=== PATIENT | female | born 1985 | race Caucasian/White ===

== ENCOUNTER 2018-05-16 19:26 | Emergency (ER) | payer OTHER ==
--- NOTE | 2018-05-16 20:27 | ERPHSYRPT ---
- History of Present Illness Time Seen by Provider: 05/16/18 20:15 Source: patient Exam Limitations: no limitations Patient Subjective Stated Complaint: Watery diarrhea since night, vomiting on night only. diarrea about 2 times per hour. States it is starting to slow down. Pt had been taking Amoxicillin, has been off it for a week. Triage Nursing Assessment: See above Physician History: 32 y/o white female who was dx with strep pharyngitis 2 weeks ago and completed amoxicillin tx one week ago presents one day of frequent vomiting now with watery diarrhea for 3 days. no travel outside [place], no drinking of well water, no camping or drinking from streams. Timing/Duration: day(s) (3) Severity: moderate Associated Symptoms: vomiting, loss of appetite, weakness Hx Tetanus, Diphtheria Vaccination/Date Given: (Unknown) Hx Influenza Vaccination/Date Given: No Hx Pneumococcal Vaccination/Date Given: No Immunizations Up to Date: Yes - Review of Systems Constitutional: Weakness Eyes: No Symptoms Ears, Nose, & Throat: No Symptoms Respiratory: No Symptoms, No Cough, No Dyspnea, No Stridor, No Wheezing Cardiac: No Symptoms Abdominal/Gastrointestinal: Nausea, Vomiting, Diarrhea Genitourinary Symptoms: No Symptoms, No Dysuria, No Frequency, No Hematuria Musculoskeletal: No Symptoms Skin: No Symptoms Neurological: No Symptoms Psychological: No Symptoms Endocrine: No Symptoms Hematologic/Lymphatic: No Symptoms Immunological/Allergic: No Symptoms All Other Systems: Reviewed and Negative - Past Medical History Neurological History: No Pertinent History ENT History: No Pertinent History Cardiac History: No Pertinent History Respiratory History: Pneumonia Endocrine Medical History: No Pertinent History Musculoskeletal History: No Pertinent History GI Medical History: No Pertinent History History: No Pertinent History Psycho-Social History: No Pertinent History Female Reproductive Disorders: No Pertinent History Other Medical History: Strep in 2018 - Past Surgical History Past Surgical History: Yes Neuro Surgical History: No Pertinent History Cardiac: No Pertinent History Respiratory: No Pertinent History Gastrointestinal: Cholecystectomy Genitourinary: No Pertinent History Musculoskeletal: No Pertinent History Female Surgical History: No Pertinent History - Social History Smoking Status: Current every day smoker How long have you smoked: 14 years Drug Use: none Patient Lives Alone: No - Female History Hx Last Menstrual Period: 2 weeks ago Hx Now: No - Nursing Vital Signs Nursing Vital Signs: Initial Vital Signs Temperature 97.7 F 05/16/18 19:54 Pulse Rate 76 05/16/18 19:54 Blood Pressure 137/85 05/16/18 19:54 O2 Sat by Pulse Oximetry 99 05/16/18 19:54 Pain Scale Pain Intensity 0 - Physical Exam General Appearance: mild distress, alert, anxiety Eye Exam: PERRL/EOMI Ears, Nose, Throat Exam: normal ENT inspection, moist mucous membranes Neck Exam: normal inspection, non-tender, supple, full range of motion Respiratory Exam: normal breath sounds, lungs clear, airway intact, No chest tenderness, No respiratory distress, No accessory muscle use, No rhonchi, No wheezing, No stridor Cardiovascular Exam: regular rate/rhythm, normal heart sounds, normal peripheral pulses Gastrointestinal/Abdomen Exam: soft, normal bowel sounds, No tenderness, No guarding, No rebound Pelvic Exam: not done Rectal Exam: not done Back Exam: normal inspection, normal range of motion, No CVA tenderness, No vertebral tenderness Extremity Exam: normal inspection, normal range of motion, pelvis stable Neurologic Exam: alert, oriented x 3, cooperative, clinical study manager II-XII nml as tested Skin Exam: normal color, warm, dry Lymphatic Exam: No adenopathy SpO2 Interpretation: normal SpO2: 99 Oxygen Delivery: Room Air - Course Nursing assessment & vital signs reviewed: Yes Ordered Tests: Active Orders 24 hr Category Date Time Status IV Insertion STAT Care 05/16/18 20:29 Active AMYLASE Stat Lab 05/16/18 20:30 Completed CBC W DIFF Stat Lab 05/16/18 20:30 Completed CMP Stat Lab 05/16/18 20:30 Completed HCG,QUALITATIVE URINE Stat Lab 05/16/18 20:30 Completed LIPASE Stat Lab 05/16/18 20:30 Completed Lactic Acid Stat Lab 05/16/18 20:40 Completed UA W/RFX UR CULTURE Stat Lab 05/16/18 20:30 Completed Medication Summary Discontinued Medications Generic Name Dose Route Start Last Admin Trade Name Freq PRN Reason Stop Dose Admin Sodium Chloride 1,000 mls @ 999 mls/hr 05/16/18 20:29 05/16/18 21:44 Sodium Chloride 0.9% 1000 Ml IV 05/16/18 21:29 Infused .Q1H1M STA Infusion Sodium Chloride Confirm 05/16/18 20:40 Sodium Chloride 0.9% 1000 Ml Administered 05/16/18 20:41 Dose 1,000 mls @ ud .ROUTE .[facility] Ondansetron HCl 4 mg 05/16/18 20:29 05/16/18 20:44 Zofran 4 Mg/2 Ml Vial IV 05/16/18 20:30 4 mg STAT ONE Administration Ondansetron HCl Confirm 05/16/18 20:40 Zofran 4 Mg/2 Ml Vial Administered 05/16/18 20:41 Dose 4 mg .ROUTE .[facility] ONE Lab/Rad Data: Laboratory Result Diagrams 05/16/18 20:30 05/16/18 20:30 Laboratory Results 05/16/18 05/16/18 05/16/18 Range/Units 21:00 20:40 20:30 WBC (4.0-10.5) K/mm3 RBC (4.1-5.4) M/mm3 Hgb (12.0-16.0) gm/dl Hct (35-47) % MCV (78-100) fl MCH (26-32) pg MCHC (32-36) g/dl RDW (11.5-14.0) % Plt Count (150-450) K/mm3 MPV (6-9.5) fl Gran % (36.0-66.0) % Eos # (Auto) (0-0.5) Absolute Lymphs (auto) (1.0-4.6) Absolute Monos (auto) (0.0-1.3) Lymphocytes % (24.0-44.0) % Monocytes % (0.0-12.0) % Eosinophils % (0.00-5.0) % Basophils % (0.0-0.4) % Absolute Granulocytes (1.4-6.9) Basophils # (0-0.4) Sodium (137-145) mmol/L Potassium (3.5-5.1) mmol/L Chloride (98-107) mmol/L Carbon Dioxide (22-30) mmol/L Anion Gap (5-15) MEQ/L BUN (7-17) mg/dL Creatinine (0.52-1.04) mg/dL Estimated GFR ML/MIN Glucose (74-106) mg/dL Lactic Acid 1.2 (0.4-2.0) Calcium (8.4-10.2) mg/dL Total Bilirubin (0.2-1.3) mg/dL AST (14-36) U/L ALT (0-35) U/L Alkaline Phosphatase (38-126) U/L Serum Total Protein (6.3-8.2) g/dL Albumin (3.5-5.0) g/dL Amylase (30-110) U/L Lipase (23-300) U/L Urine Color (YELLOW) Urine Appearance (CLEAR) Urine pH (5-6) Ur Specific [place] (1.005-1.025) Urine Protein (Negative) Urine Ketones (NEGATIVE) Urine Blood (0-5) Odin/ul Urine Nitrite (NEGATIVE) Urine Bilirubin (NEGATIVE) Urine Urobilinogen (0-1) mg/dL Ur Leukocyte Esterase (NEGATIVE) Urine WBC (Auto) (0-5) /HPF Urine RBC (Auto) (0-2) /HPF U Epithel Cells (Auto) (FEW) /HPF Urine Bacteria (Auto) (NEGATIVE) /HPF Urine Mucus (Auto) (NEGATIVE) /HPF Urine Culture Reflexed (NO) Urine Glucose (NEGATIVE) mg/dL Urine HCG, Qual NEGATIVE (Negative) Influenza Type A Ag NEGATIVE (NEGATIVE) Influenza Type B Ag NEGATIVE (NEGATIVE) RSV (PCR) NEGATIVE (Negative) 05/16/18 05/16/18 05/16/18 Range/Units 20:30 20:30 20:30 WBC 6.9 (4.0-10.5) K/mm3 RBC 4.71 (4.1-5.4) M/mm3 Hgb 14.5 (12.0-16.0) gm/dl Hct 42.7 (35-47) % MCV 90.7 (78-100) fl MCH 30.8 (26-32) pg MCHC 34.0 (32-36) g/dl RDW 12.9 (11.5-14.0) % Plt Count 202 (150-450) K/mm3 MPV 10.3 H (6-9.5) fl Gran % 53.6 (36.0-66.0) % Eos # (Auto) 0.19 (0-0.5) Absolute Lymphs (auto) 2.25 (1.0-4.6) Absolute Monos (auto) 0.72 (0.0-1.3) Lymphocytes % 32.8 (24.0-44.0) % Monocytes % 10.5 (0.0-12.0) % Eosinophils % 2.8 (0.00-5.0) % Basophils % 0.3 (0.0-0.4) % Absolute Granulocytes 3.68 (1.4-6.9) Basophils # 0.02 (0-0.4) Sodium 141 (137-145) mmol/L Potassium 3.6 (3.5-5.1) mmol/L Chloride 104 (98-107) mmol/L Carbon Dioxide 27 (22-30) mmol/L Anion Gap 13.0 (5-15) MEQ/L BUN 11 (7-17) mg/dL Creatinine 0.60 (0.52-1.04) mg/dL Estimated GFR > 60.0 ML/MIN Glucose 85 (74-106) mg/dL Lactic Acid (0.4-2.0) Calcium 8.6 (8.4-10.2) mg/dL Total Bilirubin 0.30 (0.2-1.3) mg/dL AST 59 H (14-36) U/L ALT 78 H (0-35) U/L Alkaline Phosphatase 83 (38-126) U/L Serum Total Protein 7.2 (6.3-8.2) g/dL Albumin 4.1 (3.5-5.0) g/dL Amylase 46 (30-110) U/L Lipase 66 (23-300) U/L Urine Color YELLOW (YELLOW) Urine Appearance SLIGHTLY CLOUDY (CLEAR) Urine pH 5.0 (5-6) Ur Specific [place] 1.027 (1.005-1.025) Urine Protein NEGATIVE (Negative) Urine Ketones NEGATIVE (NEGATIVE) Urine Blood SMALL (0-5) Odin/ul Urine Nitrite NEGATIVE (NEGATIVE) Urine Bilirubin NEGATIVE (NEGATIVE) Urine Urobilinogen 4 (0-1) mg/dL Ur Leukocyte Esterase NEGATIVE (NEGATIVE) Urine WBC (Auto) 0-2 (0-5) /HPF Urine RBC (Auto) 3-5 (0-2) /HPF U Epithel Cells (Auto) RARE (FEW) /HPF Urine Bacteria (Auto) NONE (NEGATIVE) /HPF Urine Mucus (Auto) SLIGHT (NEGATIVE) /HPF Urine Culture Reflexed NO (NO) Urine Glucose NEGATIVE (NEGATIVE) mg/dL Urine HCG, Qual (Negative) Influenza Type A Ag (NEGATIVE) Influenza Type B Ag (NEGATIVE) RSV (PCR) (Negative) - Progress Progress: improved, re-examined Progress Note: 05/16/18 21:47 pt states she is feeling better. no diarrhea now. nausea resolved. does not want to stay for another liter of saline Counseled pt/family regarding: lab results, diagnosis, need for follow-up - Departure Time of Disposition: 21:49 Departure Disposition: Home Clinical Impression: Viral illness, Diarrhea Condition: Stable Critical Care Time: No Additional Instructions: drink plenty of fluids. follow up with primary doctor for further management Prescriptions: Ondansetron HCl [Zofran] 4 mg PO TID PRN #10 tablet PRN Reason: Nausea/Vomiting
[2018-05-16] MEDS ORDERED: Sodium Chloride 0.9% 1000 ML 1,000 ML IV STA (20:29)
[2018-05-16] MEDS ORDERED: Zofran 4 MG/2 ML VIAL IV ONE (20:29)
[2018-05-16 20:39] LABS: BASOPHIL % 0.3 % (0.0-0.4); Basophil (Absolute #) 0.02 (0-0.4); Eosinophil % 2.8 % (0.00-5.0); Eosinophil (Absolute #) 0.19 (0-0.5); Granulocytes % 53.6 % (36.0-66.0); Hematocrit 42.7 % (35-47); Hemoglobin 14.5 gm/dl (12.0-16.0); Lymphocyte (Absolute #) 2.25 (1.0-4.6); Lymphocytes % 32.8 % (24.0-44.0); Mean Cell Volume 90.7 fl (78-100); Mean Corpuscular Hemoglobin 30.8 pg (26-32); Mean Platelet Volume 10.3 fl (6-9.5); Monocyte (Absolute #) 0.72 (0.0-1.3); Monocytes % 10.5 % (0.0-12.0); Platelet Count 202 K/mm3 (150-450); Red Blood Count 4.71 M/mm3 (4.1-5.4); Red Cell Distribution Width 12.9 % (11.5-14.0); White Blood Count 6.9 K/mm3 (4.0-10.5)
[2018-05-16] MEDS ORDERED: Zofran 4 MG/2 ML VIAL ONE (20:40)
[2018-05-16] MEDS ORDERED: Sodium Chloride 0.9% 1000 ML 1,000 ML ONE (20:40)
[2018-05-16 20:45] LABS: Appearance SLIGHTLY CLOUDY (CLEAR); Bilirubin NEGATIVE (NEGATIVE); Blood SMALL Ery/ul (0-5); Epithelial Cells RARE /HPF (FEW); Glucose NEGATIVE (NEGATIVE); Ketones NEGATIVE (NEGATIVE); Leukocyte Esterase NEGATIVE (NEGATIVE); Mucus SLIGHT /HPF (NEGATIVE); Nitrite NEGATIVE (NEGATIVE); Protein,Urine Dip NEGATIVE (Negative); Specific Gravity 1.027 (1.005-1.025); Urobilinogen 4 mg/dL (0-1); WBC 0-2 /HPF (0-5)
[2018-05-16 20:58] LABS: ALBUMIN 4.1 g/dL (3.5-5.0); ALKALINE PHOSPHATASE 83 U/L (38-126); AMYLASE 46 U/L (30-110); BLOOD UREA NITROGEN 11 mg/dL (7-17); CHLORIDE 104 mmol/L (98-107); Calcium 8.6 mg/dL (8.4-10.2); Carbon Dioxide 27 mmol/L (22-30); Glucose 85 mg/dL (74-106); LIPASE 66 U/L (23-300); Potassium 3.6 mmol/L (3.5-5.1); SGOT/AST 59 U/L (14-36); SGPT/ALT 78 U/L (0-35); SODIUM 141 mmol/L (137-145); Total Protein 7.2 g/dL (6.3-8.2)
[2018-05-16 21:46] LABS: INFLUENZA A NEGATIVE (NEGATIVE); INFLUENZA B NEGATIVE (NEGATIVE); RESPIRATORY SYNCTIAL VIRUS NEGATIVE (Negative)
[2018-05-16 22:05] VITALS: BP 106/62; PULSE 76; O2SAT 98
== END 2018-05-16 22:10 | disposition home or self-care (01) ==
LOC: ED 19:26
DX: B34.9 Viral infection, unspecified (principal); R11.2 Nausea with vomiting, unspecified; R19.7 Diarrhea, unspecified; R53.1 Weakness
CPT/HCPCS: 36000; 36415; 80053; 81001; 82150; 83605; 83690; 84703; 85025; 87631; 96360; 96374; 99284; J2405

== ENCOUNTER 2019-01-25 13:55 | Emergency (ER) | payer OTHER ==
[2019-01-25 14:09] VITALS: O2SAT 98
--- NOTE | 2019-01-25 14:16 | ERPHSYRPT ---
- History of Present Illness Time Seen by Provider: 01/25/19 14:00 Source: patient Exam Limitations: no limitations Physician History: Right foot and ankle pain after twisting it last night while walking. Patient is at 21 weeks . Method of Injury: twisted Occurred: yesterday Quality: constant, aching Severity of Pain-Max: moderate Severity of Pain-Current: moderate Lower Extremities Pain: foot: right (lateral aspect), ankle: right (lateral aspect) Modifying Factors: Improves With: movement (worsens the pain), rest (helps the pain). Worsens With: pain medication Associated Symptoms: none, No unable to bear weight, No dizzy, No fainted, No seizure, No snapping sensation, No popping sensation Allergies/Adverse Reactions: No Known Drug Allergies Allergy (Verified 01/25/19 14:09) Home Medications: Vits W-Ca,Fe,FA(<1Mg) [] 1 each PO DAILY 01/25/19 [History] Hx Tetanus, Diphtheria Vaccination/Date Given: (Unknown) Hx Influenza Vaccination/Date Given: No Hx Pneumococcal Vaccination/Date Given: No - Review of Systems Constitutional: No Fever, No Chills Eyes: No Eye Pain, No Vision Changes Ears, Nose, & Throat: No Symptoms, No Epistaxis Respiratory: No Cough, No Dyspnea Cardiac: No Chest Pain, No Edema, No Syncope Abdominal/Gastrointestinal: No Abdominal Pain, No Nausea, No Vomiting, No Diarrhea, No Hematemesis, No Hematochezia, No Melena Genitourinary Symptoms: No Dysuria, No Frequency, No Hematuria, No Flank Pain, No Vaginal Bleeding, No Vaginal Discharge Musculoskeletal: No Back Pain, No Neck Pain Skin: No Rash Neurological: No Dizziness, No Focal Weakness, No Parasthesia, No Sensory Changes, No Tremors Psychological: No Symptoms Endocrine: No Symptoms, No Polydipsia, No Excessive Sweating Hematologic/Lymphatic: No Easy Bleeding, No Easy Bruising All Other Systems: Reviewed and Negative - Past Medical History Neurological History: No Pertinent History ENT History: No Pertinent History Cardiac History: No Pertinent History Respiratory History: Pneumonia Endocrine Medical History: No Pertinent History Musculoskeletal History: No Pertinent History GI Medical History: No Pertinent History History: No Pertinent History Psycho-Social History: No Pertinent History Female Reproductive Disorders: No Pertinent History Other Medical History: Strep in 2018 - Past Surgical History Past Surgical History: Yes Neuro Surgical History: No Pertinent History Cardiac: No Pertinent History Respiratory: No Pertinent History Gastrointestinal: Cholecystectomy Genitourinary: No Pertinent History Musculoskeletal: No Pertinent History Female Surgical History: No Pertinent History - Social History Smoking Status: Current every day smoker How long have you smoked: 14 years Drug Use: none Patient Lives Alone: No - Female History Hx Now: Yes - Nursing Vital Signs Nursing Vital Signs: Initial Vital Signs Temperature 97.8 F 01/25/19 13:59 Pulse Rate 94 H 01/25/19 13:59 Respiratory Rate 18 01/25/19 13:59 Blood Pressure 120/74 01/25/19 13:59 O2 Sat by Pulse Oximetry 98 01/25/19 13:59 Pain Scale Pain Intensity 7 - Physical Exam General Appearance: no apparent distress, alert Eyes, Ears, Nose, Throat Exam: moist mucous membranes Neck Exam: non-tender, supple Cardiovascular/Respiratory Exam: chest non-tender, normal breath sounds, regular rate/rhythm, no respiratory distress Gastrointestinal/Abdominal Exam: non-tender, soft, No guarding, No tenderness Back Exam: normal inspection, No CVA tenderness, No vertebral tenderness Hips Exam: bilateral: non-tender, normal inspection, normal range of motion, no evidence of injury Legs Exam: bilateral leg: non-tender, normal inspection, normal range of motion , no evidence of injury Knees Exam: bilateral knee: non-tender, normal inspection, normal range of motion, no evidence of injury Ankle Exam: right ankle: bone tenderness, pain, soft tissue tenderness, swelling , left ankle: non-tender, bilateral ankle: normal inspection, normal range of motion Foot Exam: right foot: pain (ffit), soft tissue tenderness, left foot: non- tender, no evidence of injury, bilateral foot: normal inspection, normal range of motion DTR - Lower Extremities Exam: ankle (R): 2+, ankle (L): 2+ Neuro/Tendon Exam: normal sensation, normal motor functions, normal tendon functions, responds to pain, no evidence tendon injury, No motor deficit, No sensory deficit Mental Status Exam: alert, oriented x 3, cooperative Skin Exam: normal color, warm, dry SpO2 Interpretation: normal O2 Delivery: Room Air - Radiology Exams Right Ankle X-ray Interpretation: Interpreted by me, Reviewed by me, Negative, No Fracture, Nml Alignment, Other (confirmed by radiologist) Foot X-ray Interpretation: Interpreted by me, Reviewed by me, Negative, No Fracture, Nml Alignment, Nml Soft Tissues, Other (confirmed by radiologist) Ordered Tests: Active Orders 24 hr Category Date Time Status Heart Tones-ED STAT Care 01/25/19 14:05 Active ANKLE (3 VIEWS) Stat Exams 01/25/19 14:03 Taken FOOT (MINIMUM 3 VIEWS) Stat Exams 01/25/19 14:03 Taken CULTURE,URINE Stat Lab 01/25/19 14:12 Received UA W/RFX UR CULTURE Stat Lab 01/25/19 14:12 Completed Lab/Rad Data: Laboratory Results 01/25/19 Range/Units 14:12 Urine Color YELLOW (YELLOW) Urine Appearance SLIGHTLY CLOUDY (CLEAR) Urine pH 6.0 (5-6) Ur Specific Drew 1.026 (1.005-1.025) Urine Protein NEGATIVE (Negative) Urine Ketones NEGATIVE (NEGATIVE) Urine Blood NEGATIVE (0-5) Odin/ul Urine Nitrite NEGATIVE (NEGATIVE) Urine Bilirubin NEGATIVE (NEGATIVE) Urine Urobilinogen 4 (0-1) mg/dL Ur Leukocyte Esterase NEGATIVE (NEGATIVE) Urine WBC (Auto) 3-5 (0-5) /HPF Urine RBC (Auto) 3-5 (0-2) /HPF U Epithel Cells (Auto) FEW (FEW) /HPF Urine Bacteria (Auto) MODERATE (NEGATIVE) /HPF Urine Mucus (Auto) SLIGHT (NEGATIVE) /HPF Urine Culture Reflexed YES (NO) Urine Glucose NEGATIVE (NEGATIVE) mg/dL - Progress Progress: improved Progress Note: 01/25/19 14:36 Pop wrap to the right ankle and Air Cast Splint applied to the right ankle. Patient feels more comfortably with these and is neurovascularly intact after placement. 01/25/19 14:36 Heart Tones: 150s Counseled pt/family regarding: lab results, diagnosis, need for follow-up, rad results - Departure Departure Disposition: Home Clinical Impression: Right foot pain Right ankle sprain Qualifiers: Encounter type: initial encounter Involved ligament of ankle: unspecified ligament Qualified Code(s): S93.401A - Sprain of unspecified ligament of right ankle, initial encounter Condition: Good Critical Care Time: No Referrals: RIMA RIDLEY [Primary Care Provider] - Follow Up with PCP/3 days Instructions: Foot Sprain (DC), Ankle Sprain (DC) Additional Instructions: Your x-rays of your foot and ankle on the right side were read as negative per the Emergency Department physician as well as the radiologist's interpretation. Followup with physician in 3 days if the pain is still significant. Continue to rest, ice for 15-20 minutes on, 40-45 minutes off, 4 times a day, compression with Pop wrap, and elevation to help with pain support. You may continue to use the air cast splint for support and pain control also. You may take Tylenol very safely for pain control at this stage of . Return immediately back to the emergency department if any worsening swelling, worsening pain, inability to ambulate, or any other concerning signs or symptoms that were not present, please return to the emergency department for immediate reevaluation.
[2019-01-25 14:21] LABS: Appearance SLIGHTLY CLOUDY (CLEAR); Bacteria MODERATE /HPF (NEGATIVE); Bilirubin NEGATIVE (NEGATIVE); Blood NEGATIVE Ery/ul (0-5); Epithelial Cells FEW /HPF (FEW); Glucose NEGATIVE (NEGATIVE); Ketones NEGATIVE (NEGATIVE); Leukocyte Esterase NEGATIVE (NEGATIVE); Mucus SLIGHT /HPF (NEGATIVE); Nitrite NEGATIVE (NEGATIVE); Protein,Urine Dip NEGATIVE (Negative); Specific Gravity 1.026 (1.005-1.025); Urobilinogen 4 mg/dL (0-1)
--- NOTE | 2019-01-25 14:36 | XRAY ---
Indication: Pain following fall. Comparison: None 3 views of the right ankle demonstrates small heel spurs. No other bony, articular, or soft tissue abnormalities.
--- NOTE | 2019-01-25 14:38 | XRAY ---
Indication: Pain following fall. Comparison: None 3 nonweightbearing views of the right foot demonstrates small heel spurs and tiny talonavicular accessory ossicle. No other bony, articular, or soft tissue abnormalities.
[2019-01-25 14:56] VITALS: BP 118/70; PULSE 88
== END 2019-01-25 14:56 | disposition home or self-care (01) ==
LOC: ED 13:55
DX: S93.401A Sprain of unspecified ligament of right ankle, initial encounter (principal); M79.671 Pain in right foot; X50.1XXA Overexertion from prolonged static or awkward postures, initial encounter; Y93.9 Activity, unspecified; Y92.89 Other specified places as the place of occurrence of the external cause; Y99.8 Other external cause status
CPT/HCPCS: 73610; 73630; 81001; 87086; 99284

== ENCOUNTER 2019-05-06 12:08 | Observation (INO) | payer OTHER ==
[2019-05-06 12:44] VITALS: BP 128/68; PULSE 79
== END 2019-05-06 13:32 | disposition home or self-care (01) ==
LOC: OB 12:08
PROVIDERS: ADMIT Obstetrics & Gynecology; ATTEND Obstetrics & Gynecology
DX: Z34.83 Encounter for supervision of other normal pregnancy, third trimester (principal)
CPT/HCPCS: 59025; G0378

== ENCOUNTER 2019-05-12 10:41 | Observation (INO) | payer OTHER ==
[2019-05-12 11:09] VITALS: BP 112/58; PULSE 81
--- NOTE | 2019-05-12 12:30 | XRAY ---
Indication: Size greater than dates. 2-dimensional OB ultrasound performed. Comparison: March 31 2019. Again there is a single viable intrauterine in cephalic presentation. heart rate 144 bpm. anatomy previously documented. Again anterior placenta without abruption/previa. BPD measures 9.01 cm corresponding to 36 weeks 3 days. HC measures 33.34 cm corresponding to 38 weeks 1 day. AC measures 36.27 cm corresponding to 40 weeks 1 day. FL measures 7.29 cm corresponding to 37 weeks 2 days. Estimated weight 7 lbs. 15 oz., +/- 1 pound 3 ounces. Approximately 95 percentile. MERT is 10.9 cm. Impression: Again single viable intrauterine with mean gestational age 38 weeks 0 days. There has been progression of . Fetus measures 10 days larger with respect to first exam December 06, 2018.
== END 2019-05-12 13:38 | disposition home or self-care (01) ==
LOC: OB 10:41
PROVIDERS: ADMIT Family Medicine; ATTEND Family Medicine
DX: Z34.83 Encounter for supervision of other normal pregnancy, third trimester (principal)
CPT/HCPCS: 59025; 76805; 81003; G0378

== ENCOUNTER 2019-05-19 12:58 | Observation (INO) | payer OTHER ==
[2019-05-19 13:27] VITALS: BP 138/65; PULSE 81
== END 2019-05-19 14:08 | disposition home or self-care (01) ==
LOC: OB 12:58
PROVIDERS: ADMIT Family Medicine; ATTEND Family Medicine
DX: Z34.83 Encounter for supervision of other normal pregnancy, third trimester (principal)
CPT/HCPCS: 59025; G0378

== ENCOUNTER 2019-05-26 12:46 | Observation (INO) | payer OTHER ==
--- NOTE | 2019-05-26 14:06 | XRAY ---
Indication: well-being. Ultrasound biophysical profile exam was performed. There is a single intrauterine with heart rate 141 bpm. Four-quadrant MERT is 7.2 cm. 2 points given for movement, breathing, tone, and qualitative amniotic fluid volume. Impression: Total biophysical profile score is 8 out of 8.
[2019-05-26 14:40] VITALS: BP 145/69; PULSE 82
== END 2019-05-26 14:35 | disposition home or self-care (01) ==
LOC: OB 12:46
PROVIDERS: ADMIT Family Medicine; ATTEND Family Medicine
DX: Z34.83 Encounter for supervision of other normal pregnancy, third trimester (principal)
CPT/HCPCS: 59025; 76819; G0378

== ENCOUNTER 2019-05-27 05:10 | Inpatient (IN) | payer OTHER ==
[2019-05-27 05:48] LABS: Absolute Neutrophil Ct (ANC) 11.63 (1.4-6.9); BASOPHIL % 0.1 % (0.0-0.4); Basophil (Absolute #) 0.02 (0-0.4); Hematocrit 37.5 % (35-47); Hemoglobin 12.8 gm/dl (12.0-16.0); Lymphocyte (Absolute #) 2.28 (1.0-4.6); Lymphocytes % 14.9 % (24.0-44.0); Mean Cell Volume 90.1 fl (78-100); Mean Corpuscular Hemoglobin 30.8 pg (26-32); Mean Corpuscular Hgb Concent. 34.1 g/dl (32-36); Mean Platelet Volume 11.3 fl (7.5-11.0); Monocytes % 7.2 % (0.0-12.0); Neutrophil % 75.8 % (36.0-66.0); Platelet Count 227 K/mm3 (150-450); Red Blood Count 4.16 M/mm3 (4.1-5.4); Red Cell Distribution Width 13.7 % (11.5-14.0); White Blood Count 15.3 K/mm3 (4.0-10.5)
[2019-05-27 05:52] LABS: Appearance CLOUDY (CLEAR); Bacteria FEW /HPF (NEGATIVE); Bilirubin NEGATIVE (NEGATIVE); Blood NEGATIVE Ery/ul (0-5); Epithelial Cells FEW /HPF (FEW); Glucose NEGATIVE (NEGATIVE); Ketones NEGATIVE (NEGATIVE); Leukocyte Esterase NEGATIVE (NEGATIVE); Mucus MODERATE /HPF (NEGATIVE); Nitrite NEGATIVE (NEGATIVE); Protein,Urine Dip 30 (Negative); Specific Gravity 1.026 (1.005-1.025); Urobilinogen 2 mg/dL (0-1)
[2019-05-27 05:58] LABS: INR 0.96 (0.8-3.0); PROTIME 10.8 SECONDS (9.95-12.35)
[2019-05-27] MEDS ORDERED: Pepcid 20 MG VIAL IV SCH (06:00)
[2019-05-27] MEDS ORDERED: Reglan 10 MG/2 ML IV SCH (06:00)
[2019-05-27] MEDS ORDERED: BICITRA 30 ML CUP PO SCH (06:00)
[2019-05-27] MEDS ORDERED: Lactated Ringers 1,000 ML IV ONE ×2 (06:00→08:25)
[2019-05-27] MEDS ORDERED: Lactated Ringers 1,000 ML IV SCH (06:00)
[2019-05-27] MEDS ORDERED: CEFAZOLIN 2 GM-D5W BAG** 2 GM/50 ML ML IV SCH (06:00)
[2019-05-27 06:01] LABS: PTT 30.1 SECONDS (25.3-37.0)
[2019-05-27 06:39] LABS: Amphetamine,Urine NEGATIVE (NEGATIVE); Barbiturate,Urine NEGATIVE (NEGATIVE); Benzodiazepine,Urine NEGATIVE (NEGATIVE); Cocaine,Urine NEGATIVE (NEGATIVE); Methadone,Urine NEGATIVE (NEGATIVE); Opiate,Urine NEGATIVE (NEGATIVE); PCP,Urine NEGATIVE (NEGATIVE); THC,Urine NEGATIVE (NEGATIVE)
[2019-05-27 06:40] LABS: ABO TYPING B; Antibody Screen NEGATIVE (NEGATIVE); RH TYPING POSITIVE
[2019-05-27] MEDS ORDERED: Astramorph-Pf 5 MG/10 ML ONE (08:55)
[2019-05-27] MEDS ORDERED: Pitocin 10 UNITS/ML ONE ×2 (08:56→09:53)
[2019-05-27] MEDS ORDERED: PHENYLEPHRINE HCL ONE (09:24)
[2019-05-27] MEDS ORDERED: SUBLIMAZE 100 MCG/2 ML ONE (09:50)
[2019-05-27] MEDS ORDERED: Versed 2 MG/2 ML Injection ONE (09:50)
[2019-05-27] MEDS ORDERED: Ketamine HCl 50 MG/ML ONE (09:52)
[2019-05-27] MEDS ORDERED: DEMEROL 50 MG IV PRN ×2 (10:00→12:14)
[2019-05-27] MEDS ORDERED: Phenergan 25 MG INJ IM PRN (10:00)
[2019-05-27] MEDS ORDERED: TORAdol 30 mg Injection ONE (10:06)
[2019-05-27 11:35] LABS: Appearance SLIGHTLY CLOUDY (CLEAR); Bacteria RARE /HPF (NEGATIVE); Bilirubin NEGATIVE (NEGATIVE); Blood NEGATIVE Ery/ul (0-5); Epithelial Cells RARE /HPF (FEW); Glucose NEGATIVE (NEGATIVE); Ketones NEGATIVE (NEGATIVE); Leukocyte Esterase NEGATIVE (NEGATIVE); Mucus MODERATE /HPF (NEGATIVE); Nitrite NEGATIVE (NEGATIVE); Protein,Urine Dip NEGATIVE (Negative); RBC 0-2 /HPF (0-2); Specific Gravity 1.027 (1.005-1.025); Urobilinogen 2 mg/dL (0-1)
[2019-05-27] MEDS ORDERED: Nubain 10 MG/ML IV PRN (12:14)
[2019-05-27] MEDS ORDERED: BENADRYL 50 MG/ML IV PRN (12:14)
[2019-05-27] MEDS ORDERED: Narcan 0.4 MG/ML IV PRN (12:14)
[2019-05-27] MEDS ORDERED: CLARITIN 10 MG PO PRN (12:14)
[2019-05-27] MEDS ORDERED: Zofran 4 MG/2 ML VIAL IV PRN (12:14)
[2019-05-27] MEDS ORDERED: MORPHINE SULFATE 2 MG INJ IV PRN (12:14)
[2019-05-27] MEDS ORDERED: HOLD NARCOTIC ANALGESICS AND SEDATIVES X24 HR MC PRN (12:14)
[2019-05-27] MEDS ORDERED: TORAdol 30 mg Injection IV PRN (12:29)
[2019-05-27] MEDS ORDERED: TYLENOL EXTRA STRENGTH 500 MG PO PRN (13:06)
[2019-05-27] MEDS ORDERED: Mylicon 80MG PO PRN (13:06)
[2019-05-27] MEDS ORDERED: Anucort-HC SUPPOSITORY PR PRN (13:06)
[2019-05-27] MEDS ORDERED: Ambien 10 MG PO PRN (13:06)
[2019-05-27] MEDS ORDERED: CORTISONE 1% CREAM TP PRN (13:06)
[2019-05-27] MEDS ORDERED: Dulcolax 10 MG SUPP PR PRN (13:06)
[2019-05-27] MEDS: Dextrose 5%-Lr IV Solution 1000 ML 1,000 ML IV SCH (15:53)
[2019-05-27] MEDS: MOTRIN 400 MG PO PRN (17:17)
[2019-05-27] MEDS: Colace 100 MG PO SCH (20:51)
[2019-05-27] MEDS: PERCOCET TABLET 5/325MG PO PRN (20:51)
[2019-05-27] MEDS: ENOXAPARIN SODIUM SQ SCH (20:52)
[2019-05-28] MEDS: Dextrose 5%-Lr IV Solution 1000 ML 1,000 ML IV SCH (02:29)
[2019-05-28] MEDS: MOTRIN 400 MG PO PRN ×3 (02:38→18:14)
[2019-05-28] MEDS: PERCOCET TABLET 5/325MG PO PRN (02:38)
[2019-05-28 04:53] LABS: Absolute Neutrophil Ct (ANC) 7.83 (1.4-6.9); BASOPHIL % 0.2 % (0.0-0.4); Basophil (Absolute #) 0.02 (0-0.4); Eosinophil % 2.4 % (0.00-5.0); Eosinophil (Absolute #) 0.26 (0-0.5); Hematocrit 33.8 % (35-47); Hemoglobin 11.4 gm/dl (12.0-16.0); Lymphocyte (Absolute #) 2.04 (1.0-4.6); Lymphocytes % 18.4 % (24.0-44.0); Mean Cell Volume 92.3 fl (78-100); Mean Corpuscular Hemoglobin 31.1 pg (26-32); Mean Corpuscular Hgb Concent. 33.7 g/dl (32-36); Mean Platelet Volume 11.3 fl (7.5-11.0); Monocyte (Absolute #) 0.91 (0.0-1.3); Monocytes % 8.2 % (0.0-12.0); Neutrophil % 70.8 % (36.0-66.0); Platelet Count 178 K/mm3 (150-450); Red Blood Count 3.66 M/mm3 (4.1-5.4); Red Cell Distribution Width 14.1 % (11.5-14.0); White Blood Count 11.1 K/mm3 (4.0-10.5)
[2019-05-28] MEDS: Colace 100 MG PO SCH ×2 (09:25→21:37)
[2019-05-28] MEDS: FERREX 150 PO SCH (09:25)
[2019-05-28] MEDS ORDERED: Restoril 15 MG PO PRN (13:06)
[2019-05-28] MEDS: NORCO 5/325 MG PO PRN ×2 (15:15→19:56)
[2019-05-28] MEDS: ENOXAPARIN SODIUM SQ SCH (21:38)
[2019-05-29 02:16] VITALS: O2SAT 97
[2019-05-29] MEDS: NORCO 5/325 MG PO PRN ×3 (04:15→08:47)
[2019-05-29] MEDS: MOTRIN 400 MG PO PRN ×2 (06:12)
[2019-05-29] MEDS: FERREX 150 PO SCH (08:49)
[2019-05-29] MEDS: Colace 100 MG PO SCH (08:49)
--- NOTE | 2019-05-29 08:58 | PCM.DS ---
Discharge Summary Date of Admission: 05/27/19 05:10 Admitting Physician: RIMA PA Consults: Consults on Case 05/27/19 05:00 Notify Anesthesia Provider ROUTINE Notify Physician OF ADMISSION 05/27/19 12:14 Notify Anesthesia Provider PRN Primary Care Provider: RIMA PA Allergies Allergies No Known Drug Allergies Allergy (Verified 05/19/19 13:29) Hospital Summary - Hospital Course Hospital Course: patient had repeat by Dr Carcamo on 05/27, had care with Dr Pa. has done excellent post-operatively with no complications. has mild lochia, pain is controlled and she is well bonded with her baby girl. bottle feeding - Vitals & Intake/Output Vital Signs: Vital Signs Temperature 98.0 F 05/29/19 02:00 Pulse Rate 88 05/29/19 02:00 Respiratory Rate 20 05/29/19 02:00 Blood Pressure 120/78 05/29/19 02:00 O2 Sat by Pulse Oximetry 97 05/29/19 02:00 Intake & Output: Intake & Output 05/26/19 05/27/19 05/28/19 05/29/19 11:59 11:59 11:59 11:59 Intake Total 4959 2100 Output Total 650 1750 Balance 4309 350 Weight 158.757 kg - Lab Result Diagrams: 05/28/19 04:56 Lab Results-Last 24 Hrs: Lab Results-Last 24 Hours 05/27/19 Range/Units 05:35 Hep Bs Antigen Non Reactive (Non Reactive) Micro Results-Entire Visit: Microbiology 05/27/19 09:17 Urine Culture - Preliminary Urine, Catheterized NO GROWTH TO DATE - Procedures and Test Procedures and Tests throughout Hospitalization: Therapy Orders & Screens 05/27/19 11:18 Standby Routine Comment: Diagnosis: Repeat Section Discharge Exam General Appearance: no apparent distress, obese Neurologic Exam: alert, oriented x 3, cooperative Respiratory Exam: normal breath sounds, lungs clear, No respiratory distress Cardiovascular Exam: regular rate/rhythm, normal heart sounds Gastrointestinal/Abdomen Exam: soft, other (dressing clean,dry, intact), No tenderness, No mass Extremity Exam: normal inspection, normal range of motion Skin Exam: normal color, warm, dry Final Diagnosis/Problem List - Final Discharge Diagnosis/Problem (1) delivery delivered Current Visit: Yes Status: Acute Code(s): O82 - ENCOUNTER FOR DELIVERY WITHOUT INDICATION - Discharge Disposition: Home, Self-Care Condition: Stable Prescriptions: New Hydrocodone/APAP 5-325 Tab^^^ [[place] 5-325 Tablet^^^] 1 tab PO Q6HPRN PRN # 20 tablet MDD 6 PRN Reason: Pain Continue Vits W-Ca,Fe,FA(<1Mg) [] 1 each PO DAILY Loratadine 10 mg PO DAILY Follow up with: RIMA PA [Primary Care Provider] - 1 Week
[2019-05-29 10:32] VITALS: BP 151/90; PULSE 90
--- NOTE | 2019-05-30 09:33 | OP ---
SURGERY DATE/TIME: 05/27/2019901 PREOPERATIVE DIAGNOSIS: Intrauterine at 38 weeks and 6 days gestation with previous section, morbid obesity, oligohydramnios and macrosomia. POSTOPERATIVE DIAGNOSIS: Intrauterine at 38 weeks and 6 days gestation with previous section, morbid obesity, oligohydramnios and macrosomia. PROCEDURE: Repeat section, low flap transverse uterine incision, Pfannenstiel skin incision, vacuum-assisted delivery. SURGEON: Lamberto Carcamo D.O. ENVIRONMENTAL FIELD PROFESSIONAL: Dr. Christi Pa ANESTHESIA: Spinal. ESTIMATED BLOOD LOSS: 600 cc. COMPLICATIONS: None. INDICATIONS: The risks, benefits, indications and alternatives of the procedure were reviewed with the patient prior to procedure. The patient understood the risk of infection, bleeding, bowel injury, bladder injury, ureteral injury, incisional hernia associated with the surgery and desires to have this surgery as a possible need to alleviate her current medical condition. DESCRIPTION OF PROCEDURE AND FINDINGS: At this point the patient is taken to the operating room where her spinal anesthesia was found to adequate. She was then prepped and draped in normal sterile fashion in the dorsal supine position with leftward tilt. A Pfannenstiel skin incision is made with a scalpel and then carried through to the underlying layer of the fascia with Bovie. The fascia was then incised in the midline and the incision extended laterally with Dexter scissors. The superior aspect of the fascial incision was then grasped Femi clamps elevated and the underlying rectus muscles dissected off bluntly. Attention is then turned to the inferior aspect of this incision which in similar fashion was grasped, tented up with Femi clamps and the rectus muscles dissected off bluntly. The rectus muscles were then at the midline and the peritoneum identified, tented up and entered sharply with Metzenbaum scissors. The peritoneum incision was then extended superiorly and inferiorly with good visualization of the bladder. The bladder blade was then inserted and the vesicouterine peritoneum identified, grasped with a pickup and entered sharply with Metzenbaum scissors. This incision was then extended laterally and bladder flap created medially. The bladder blade was then re-inserted and the lower uterine segment incised in transverse fashion with a scalpel. The uterine incision was then extended laterally with bandage scissors. At this point the bladder blade was then removed and secondary to the position of the baby's head, vacuum assistance was used to deliver the baby's head and was done so without complication. The nose and mouth were suctioned with the suction cup and cord clamped and cut. The was then handed off to the awaiting nurses. From this point the placenta was then removed manually. The uterus exteriorized and cleared of all clots and debris. The uterine incision was repaired with 1-0 chromic interlocked fashion. A second layer of the same suture was used to obtain excellent hemostasis. The uterus is then returned to the abdomen. The gutters were cleared of all clots and the peritoneum closed in interrupted fashion using 2-0 chromic suture. The fascia was reapproximated with 0 Vicryl in running fashion. The subcutaneous layer was closed with 3-0 plain suture. The skin was closed with absorbable cristina called INSORB. The patient tolerated the procedure well. Sponge, lap, needle and instrument counts were correct x2. The patient was then taken to the recovery room in stable condition. The patient delivered a live baby girl at 0936 hours. 's were 9 at 1 minute and 9 at 5 minutes and the delivery weight was 9 pounds 0 ounces.
== END 2019-05-29 09:45 | disposition home or self-care (01) | DRG 787 ==
LOC: OB 05:10 → UNDOADMIN 08:05 → OB 08:05
PROVIDERS: ADMIT Family Medicine; ATTEND Family Medicine
PROC: 10D00Z1 Extraction of Products of Conception, Low, Open Approach (ICD-10-PCS; principal; 2019-05-28)
DX: O34.211 Maternal care for low transverse scar from previous cesarean delivery (principal); O41.03X0 Oligohydramnios, third trimester, not applicable or unspecified; O36.63X0 Maternal care for excessive fetal growth, third trimester, not applicable or unspecified; Z3A.38 38 weeks gestation of pregnancy; Z37.0 Single live birth
CPT/HCPCS: 36415; 59025; 62322; 76819; 80307; 81001; 81003; 85025; 85610; 85730; 86850; 86900; 86901; 87086; 87340; 94799; G0378; J0690; J1650; J1885; J2250; J2274; J2370; J2590; J3010; A9270-GY

== ENCOUNTER 2020-05-22 21:40 | Emergency (ER) | payer OTHER ==
--- NOTE | 2020-05-22 22:13 | ERPHSYRPT ---
- History of Present Illness Time Seen by Provider: 05/22/20 22:15 Source: patient ([id number]) Physician History: Patient is a 34-year-old female presents to our ED with complaints of right foot and ankle pain. Patient stepped on a toy and inverted her ankle. Injury occurred approximately 4 PM today. Patient wrapped the ankle took ibuprofen and ambulated on her foot. However patient is here because the pain persist. No other injuries reported. Pain described as an ache that is well localized. No radiation. Pain worse with weightbearing pain improved with rest. Symptoms are mild to moderate in intensity. Patient denies other injuries. No knee hip or back pain. No BHT or LOC. Patient otherwise healthy. She voices no other complaints concerns at this time. Method of Injury: twisted Occurred: this afternoon Quality: constant Severity of Pain-Max: moderate Severity of Pain-Current: mild Lower Extremities Pain: foot: right, ankle: right Modifying Factors: Improves With: movement, rest Associated Symptoms: none Allergies/Adverse Reactions: No Known Drug Allergies Allergy (Verified 05/22/20 22:10) Home Medications: Loratadine 10 mg PO DAILY 05/06/19 [History] Hx Tetanus, Diphtheria Vaccination/Date Given: (Unknown) Hx Influenza Vaccination/Date Given: No Hx Pneumococcal Vaccination/Date Given: No Travel Risk - International Travel Have you traveled outside of the country in past 3 weeks: No - Coronavirus Screening Are you exhibiting any of the following symptoms?: No Close contact with a COVID-19 positive Pt in past 14-21 Days: No - Review of Systems Constitutional: No Symptoms, No Fever, No Chills Eyes: No Symptoms Ears, Nose, & Throat: No Symptoms Respiratory: No Symptoms, No Cough, No Dyspnea Cardiac: No Symptoms, No Chest Pain, No Edema, No Syncope Abdominal/Gastrointestinal: No Symptoms, No Abdominal Pain, No Nausea, No Vomiting, No Diarrhea Genitourinary Symptoms: No Symptoms, No Dysuria Musculoskeletal: No Symptoms, No Back Pain, No Neck Pain Skin: No Symptoms, No Rash Neurological: No Symptoms, No Dizziness, No Focal Weakness, No Sensory Changes Psychological: No Symptoms Endocrine: No Symptoms Hematologic/Lymphatic: No Symptoms Immunological/Allergic: No Symptoms All Other Systems: Reviewed and Negative - Past Medical History Neurological History: No Pertinent History ENT History: No Pertinent History Cardiac History: No Pertinent History Respiratory History: Pneumonia Endocrine Medical History: No Pertinent History Musculoskeletal History: No Pertinent History GI Medical History: No Pertinent History History: No Pertinent History Psycho-Social History: No Pertinent History Female Reproductive Disorders: No Pertinent History Other Medical History: Strep in 2018 - Past Surgical History Past Surgical History: Yes Neuro Surgical History: No Pertinent History Cardiac: No Pertinent History Respiratory: No Pertinent History Gastrointestinal: Cholecystectomy Genitourinary: No Pertinent History Musculoskeletal: No Pertinent History Female Surgical History: No Pertinent History - Social History Smoking Status: Current some day smoker How long have you smoked: 14 years Exposure to second hand smoke: Yes Drug Use: none Patient Lives Alone: No - Female History Hx Now: No - Nursing Vital Signs Nursing Vital Signs: Initial Vital Signs Temperature 98.5 F 05/22/20 22:07 Pulse Rate 84 05/22/20 22:07 Respiratory Rate 18 05/22/20 22:07 Blood Pressure 133/86 05/22/20 22:07 O2 Sat by Pulse Oximetry 96 05/22/20 22:07 Pain Scale Pain Intensity 8 - Physical Exam General Appearance: no apparent distress, alert Eyes, Ears, Nose, Throat Exam: moist mucous membranes Neck Exam: non-tender, supple Cardiovascular/Respiratory Exam: chest non-tender, normal breath sounds, regular rate/rhythm, no respiratory distress Gastrointestinal/Abdominal Exam: non-tender, guarding Back Exam: normal inspection, No vertebral tenderness Hips Exam: bilateral: non-tender, normal inspection, normal range of motion, no evidence of injury Legs Exam: bilateral leg: non-tender, normal inspection, normal range of motion, no evidence of injury Knees Exam: bilateral knee: non-tender, normal inspection, normal range of motion, no evidence of injury Ankle Exam: left ankle: non-tender, normal inspection, normal range of motion, no evidence of injury Foot Exam: left foot: non-tender, normal inspection, normal range of motion, no evidence of injury Neuro/Tendon Exam: normal sensation, normal motor functions Mental Status Exam: alert, oriented x 3, cooperative Skin Exam: normal color, warm, dry SpO2 Interpretation: normal O2 Delivery: Room Air - Course Nursing assessment & vital signs reviewed: Yes - Radiology Exams Ankle X-ray Interpretation: Interpreted by me (No fracture or dislocation.) Foot X-ray Interpretation: Interpreted by me (No fracture or dislocation.) Ordered Tests: Active Orders 24 hr Category Date Time Status ANKLE (3 VIEWS) Stat Exams 05/22/20 22:07 Taken FOOT (MINIMUM 3 VIEWS) Stat Exams 05/22/20 22:07 Taken - Progress Progress: improved Progress Note: 05/22/20 22:53 Patient reassessed. Patient continues to decline pain medication. X-ray negative for fracture dislocation. Will place patient in a walking boot. Patient to follow-up with her primary care doctor within 48 hours for reevaluation. Patient voices no other complaints concerns at this time. Will discharge home. Counseled pt/family regarding: diagnosis, need for follow-up, rad results - Departure Departure Disposition: Home Clinical Impression: Ankle sprain, Foot sprain Condition: Stable Critical Care Time: No Referrals: RIMA CLEMENTS [Primary Care Provider] - Additional Instructions: Discharge/Care Plan STEPHANIE BETANCOURT YURI was seen on 05/22/20 in the Emergency Room. The patient was counseled regarding Diagnosis,Lab results, Imaging studies, need for follow up and when to return to the Emergency Room. Prescriptions given: Discharge Note I have spoken with the patient and/or caregivers. I have explained the patient's condition, diagnosis and treatment plan based on the information available to me at this time. I have answered the patient's and/or caregiver's questions and addressed any concerns. The patient and/or caregivers have as good understanding of the patient's diagnosis, condition and treatment plan as can be expected at this point. The vital signs have been stable. The patient's condition is stable and appropriate for discharge from the emergency department. The patient will pursue further outpatient evaluation with the primary care physician or other designated or consulting physician as outlined in the discharge instructions. The patient and/or caregivers are agreeable to this plan of care and follow-up instructions have been explained in detail. The patient and/or caregivers have received these instruction. The patient/and or caregivers are aware that any significant change in condition or worsening of symptoms should prompt an immediate return to this or the closest emergency department or call 911.
[2020-05-22 23:38] VITALS: BP 86/56; PULSE 80; O2SAT 100
--- NOTE | 2020-05-23 08:51 | XRAY ---
Indication: Pain following fall. Comparison: None 3 view right ankle demonstrates tiny heel spurs. No other bony, articular, or soft tissue abnormalities.
--- NOTE | 2020-05-23 09:01 | XRAY ---
Indication: Pain following fall. Comparison: None 3 nonweightbearing views right foot demonstrates tiny heel spurs and tiny talonavicular/cuboid accessory ossicles. No other bony, articular, or soft tissue abnormalities.
== END 2020-05-22 23:09 | disposition home or self-care (01) ==
LOC: ED 21:40
DX: S93.401A Sprain of unspecified ligament of right ankle, initial encounter (principal); S93.601A Unspecified sprain of right foot, initial encounter; X50.9XXA Other and unspecified overexertion or strenuous movements or postures, initial encounter
CPT/HCPCS: 73610; 73630; 99284; L4386

== ENCOUNTER 2022-11-25 23:45 | Emergency (ER) | payer OTHER ==
[2022-11-26] MEDS ORDERED: TORAdol 30 mg Injection IM ONE (00:25)
[2022-11-26] MEDS ORDERED: TORAdol 30 mg Injection ONE (00:39)
[2022-11-26] MEDS ORDERED: CORTISPORIN EAR DROPS Solution 1OML OT ONE (00:42)
[2022-11-26 00:50] VITALS: BP 135/85; O2SAT 99
--- NOTE | 2022-11-26 01:22 | ERPHSYRPT ---
- History of Present Illness Time Seen by Provider: 11/26/22 01:00 Source: patient Exam Limitations: no limitations Patient Subjective Stated Complaint: pt c/o R ear ache x2 days Triage Nursing Assessment: pt ambulatory to bed by self, A&OX3, skin pwd, pt c/o R ear ache, pt holding R ear, pt was seen at [facility] this morning and was prescribed Augmentin Q 12 hrs, pt has had 2 doses, pt states "It feels like my ear is closing up." Physician History: Patient a 37-year-old female presents to our ED for evaluation of pain to her right ear. Pain started yesterday. Patient slept with a hot pack on her right ear. Patient ear pain worsen. Patient states she feels as though her right ear canal was closing up. Patient followed up at an urgent care today. Patient was prescribed Augmentin. Patient has taken 2 doses. Patient is here due to constant pain. No trauma. No fever. Symptoms are mild to moderate in intensity. Manipulation of the external ear reproduces pain. Pain improved with rest. No associated dizziness. No change in hearing acuity. Patient otherwise feels well. She voices no other complaints or concerns at this time. Portions of this note were created with voice recognition technology. There may be grammatical, spelling, punctuation or sound alike errors Timing/Duration: gradual onset Severity: moderate ENT Location: ear (R) Prearrival Treatment: over the counter meds Modifying Factors: Improves With: nothing Associated Symptoms: denies symptoms Allergies/Adverse Reactions: No Known Drug Allergies Allergy (Verified 05/22/20 22:10) Home Medications: Amox Tr/Potass Clav. 875 mg [Augmentin 875-125 Tablet] 875 mg PO BID 11/26/22 [History] Hx Tetanus, Diphtheria Vaccination/Date Given: Yes Hx Influenza Vaccination/Date Given: No Hx Pneumococcal Vaccination/Date Given: No Immunizations Up to Date: Yes Travel Risk - International Travel Have you traveled outside of the country in past 3 weeks: No - Coronavirus Screening Are you exhibiting any of the following symptoms?: No Close contact with a COVID-19 positive Pt in past 14-21 Days: No - Vaccine Status Have you recieved a Covid-19 vaccination: No - Review of Systems Constitutional: No Symptoms, No Fever, No Chills Eyes: No Symptoms Ears, Nose, & Throat: No Symptoms Respiratory: No Symptoms, No Cough, No Dyspnea Cardiac: No Symptoms, No Chest Pain, No Edema, No Syncope Abdominal/Gastrointestinal: No Symptoms, No Abdominal Pain, No Nausea, No Vomiting, No Diarrhea Genitourinary Symptoms: No Symptoms, No Dysuria Musculoskeletal: No Symptoms, No Back Pain, No Neck Pain Skin: No Symptoms, No Rash Neurological: No Symptoms, No Dizziness, No Focal Weakness, No Sensory Changes Psychological: No Symptoms Endocrine: No Symptoms Hematologic/Lymphatic: No Symptoms Immunological/Allergic: No Symptoms All Other Systems: Reviewed and Negative - Past Medical History Pertinent Past Medical History: Yes Neurological History: No Pertinent History ENT History: No Pertinent History Cardiac History: No Pertinent History Respiratory History: Pneumonia Endocrine Medical History: No Pertinent History Musculoskeletal History: No Pertinent History GI Medical History: No Pertinent History History: No Pertinent History Psycho-Social History: No Pertinent History Female Reproductive Disorders: No Pertinent History Other Medical History: Strep in 2018 - Past Surgical History Past Surgical History: Yes Neuro Surgical History: No Pertinent History Cardiac: No Pertinent History Respiratory: No Pertinent History Gastrointestinal: Cholecystectomy Genitourinary: No Pertinent History Musculoskeletal: No Pertinent History Female Surgical History: Section - Social History Smoking Status: Current every day smoker How long have you smoked: 14 years Exposure to second hand smoke: No Drug Use: none Patient Lives Alone: No - Female History Hx Last Menstrual Period: 11/25/22 Hx Now: No - Nursing Vital Signs Nursing Vital Signs: Initial Vital Signs Temperature 97.9 F 11/25/22 23:54 Pulse Rate 69 11/25/22 23:54 Respiratory Rate 18 11/25/22 23:54 Blood Pressure 125/98 11/25/22 23:54 O2 Sat by Pulse Oximetry 97 11/25/22 23:54 Pain Scale Pain Intensity 9 - Physical Exam General Appearance: no apparent distress, alert Eye Exam: bilateral eye: normal inspection, PERRL, EOMI Ear Exam: right ear: other (Right otitis externa. TM intact. No perforation observed on exam. No mastoid pain or tenderness. There is swelling and closure of the external auditory canal. This is due to otitis externa), left ear: auricle normal, canal normal, TM normal, bleeding Nasal Exam: normal inspection Throat Exam: pharynx normal, moist mucus membranes, No tonsillar exudate Neck Exam: supple Cardiovascular/Respiratory Exam: normal breath sounds, regular rate/rhythm Abdominal Exam: non-tender, soft Neurologic Exam: alert, oriented x 3, sensation nml, No motor deficits Skin Exam: normal color, warm, dry SpO2 Interpretation: normal SpO2: 99 O2 Delivery: Room Air - Course Nursing assessment & vital signs reviewed: Yes Ordered Tests: Medication Summary Discontinued Medications Generic Name Dose Route Start Last Admin Trade Name Chelsy PRN Reason Stop Dose Admin Ketorolac Tromethamine 60 mg 11/26/22 00:25 11/26/22 00:42 Ketorolac Tromethamine 30 Mg/Ml Inj IM 11/26/22 00:26 60 mg STAT ONE Administration Ketorolac Tromethamine Confirm 11/26/22 00:39 Ketorolac Tromethamine 30 Mg/Ml Inj Administered 11/26/22 00:40 Dose 60 mg .ROUTE .Imaging3-TrendBent ONE - Progress Progress: improved Progress Note: Patient is a 37-year-old female presents to our ED with a right otitis externa. We placed a ear wick and administered Cortisporin eardrop. Tympanic membrane intact. No perforated tympanic membrane observed on my exam today. Patient tolerated procedure well. Patient received IM Toradol for pain control. Patient resting comfortably. Patient was allowed to take the Cortisporin eardrop bottle home. No prescription required at this point for additional Cortisporin eardrop. A prescription for Toradol p.o. was forwarded to patient's pharmacy. Patient agrees to follow-up with her primary care doctor within 48 hours. She voices no other complaints or concerns at this time. Portions of this note were created with voice recognition technology. There may be grammatical, spelling, punctuation or sound alike errors Complexity of problem addressed is low acute uncomplicated Complex of data reviewed and analyzed is none. Diagnosis made based on history and physical exam. Risk of complication and or risk of morbidity/mortality of patient management is moderate. A prescription for Toradol was forwarded to patient's pharmacy. Patient agrees to follow-up with her primary care doctor within 48 hours for reevaluation. Portions of this note were created with voice recognition technology. There may be grammatical, spelling, punctuation or sound alike errors no social determinants of health present to impede follow-up. Vital stable. Plan of care established for shared decision making. Time to discharge patient approximately 15 minutes. Portions of this note were created with voice recognition technology. There may be grammatical, spelling, punctuation or sound alike errors 11/26/22 01:38 Counseled pt/family regarding: diagnosis, need for follow-up - Departure Departure Disposition: Home Clinical Impression: Otitis externa Condition: Stable Critical Care Time: No Referrals: DOCTOR,NO FAMILY [Primary Care Provider] - Follow up/PCP as directed MOLINA WESTFALL MD [ACTIVE STAFF] - Follow up/PCP as directed Additional Instructions: Discharge/Care Plan STEPHANIE BETANCOURT was seen on 11/26/22 in the Emergency Room. The patient was counseled regarding Diagnosis,Lab results, Imaging studies, need for follow up and when to return to the Emergency Room. Prescriptions given: Discharge Note I have spoken with the patient and/or caregivers. I have explained the patient's condition, diagnosis and treatment plan based on the information available to me at this time. I have answered the patient's and/or caregiver's questions and addressed any concerns. The patient and/or caregivers have as good understanding of the patient's diagnosis, condition and treatment plan as can be expected at this point. The vital signs have been stable. The patient's condition is stable and appropriate for discharge from the emergency department. The patient will pursue further outpatient evaluation with the primary care physician or other designated or consulting physician as outlined in the discharge instructions. The patient and/or caregivers are agreeable to this plan of care and follow-up instructions have been explained in detail. The patient and/or caregivers have received these instruction. The patient/and or caregivers are aware that any significant change in condition or worsening of symptoms should prompt an immediate return to this or the closest emergency department or call 911. Prescriptions: Ketorolac Trometh 10 mg Tab [TORAdol 10 MG TABLET] 10 mg PO TID 5 Days #15 tablet
[2022-11-26 01:35] VITALS: PULSE 68
== END 2022-11-26 01:42 | disposition home or self-care (01) ==
LOC: ED 23:45
DX: H60.91 Unspecified otitis externa, right ear (principal); H92.01 Otalgia, right ear; Z28.310 Unvaccinated for COVID-19; Z72.0 Tobacco use
CPT/HCPCS: 96372; 99283; J1885; A9270-GY

== ENCOUNTER 2024-05-29 18:33 | Emergency (ER) | payer OTHER ==
[2024-05-29 18:52] VITALS: TEMP 97.8; O2SAT 97
--- NOTE | 2024-05-29 18:58 | ERPHSYRPT ---
- History of Present Illness Time Seen by Provider: 05/29/24 18:58 Source: patient, family Exam Limitations: no limitations Patient Subjective Stated Complaint: pt here for cough, runny nose, fever for a couple days Triage Nursing Assessment: pt alert, walked in, stuffy nose, resp easy, skin w/d/p. moves all ext well, Physician History: Pt had onset of cold symptoms 3 days ago with emesis also not sort of breath Discussed with pt and available family risks and benefits of testing/Tx including swabs for Covid, RSV, Flu and Strep, Antiviral if indicated and they wish to proceed so these are ordered. family is here as independent source for Hx. Results discussed with pt and available family. Timing/Duration: day(s) Cough Quality/Degree: moderate, dry cough Possible Cause: no prior episodes Modifying Factors: Improves With: coughing Associated Symptoms: cough, nasal congestion, No shortness of breath Allergies/Adverse Reactions: No Known Drug Allergies Allergy (Verified 05/29/24 18:50) Hx Tetanus, Diphtheria Vaccination/Date Given: No Hx Influenza Vaccination/Date Given: No Hx Pneumococcal Vaccination/Date Given: No Immunizations Up to Date: Yes Travel Risk - International Travel Have you traveled outside of the country in past 3 weeks: No - Emerging Infectious Disease Are you exhibiting symptoms associated with any current EIDs: Yes Symptoms: Cough: New Onset, Fever - Review of Systems Constitutional: Fever, No Chills Eyes: No Symptoms Ears, Nose, & Throat: No Symptoms Respiratory: Cough, No Dyspnea Cardiac: No Chest Pain, No Edema, No Syncope Abdominal/Gastrointestinal: Nausea, Vomiting, No Abdominal Pain, No Diarrhea Genitourinary Symptoms: No Dysuria Musculoskeletal: No Back Pain, No Neck Pain Skin: No Rash Neurological: No Dizziness, No Focal Weakness, No Sensory Changes Psychological: No Symptoms Endocrine: No Symptoms Hematologic/Lymphatic: No Symptoms Immunological/Allergic: No Symptoms All Other Systems: Reviewed and Negative - Past Medical History Pertinent Past Medical History: Yes Neurological History: No Pertinent History ENT History: No Pertinent History Cardiac History: No Pertinent History Respiratory History: Pneumonia Endocrine Medical History: No Pertinent History Musculoskeletal History: No Pertinent History GI Medical History: No Pertinent History History: No Pertinent History Psycho-Social History: No Pertinent History Female Reproductive Disorders: No Pertinent History Other Medical History: Strep in 2018 - Past Surgical History Past Surgical History: Yes Neuro Surgical History: No Pertinent History Cardiac: No Pertinent History Respiratory: No Pertinent History Gastrointestinal: Cholecystectomy Genitourinary: No Pertinent History Musculoskeletal: No Pertinent History Female Surgical History: Section - Female History Hx Last Menstrual Period: 2 weeks go Hx Now: No - Social History Smoking Status: Current every day smoker How long have you smoked: 14 years Exposure to second hand smoke: Yes Drug Use: none Patient Lives Alone: No - Social Determinants of Health Will the patient participate in the screening: Declined to provide - Nursing Vital Signs Nursing Vital Signs: Initial Vital Signs Temperature 97.8 F 05/29/24 18:51 Pulse Rate 74 05/29/24 18:51 Respiratory Rate 20 05/29/24 18:51 Blood Pressure 133/85 05/29/24 18:51 O2 Sat by Pulse Oximetry 97 05/29/24 18:51 Pain Scale Pain Intensity 0 - Physical Exam General Appearance: no apparent distress, alert Eye Exam: PERRL/EOMI, eyes nml inspection Ears, Nose, Throat Exam: normal ENT inspection, TMs normal, pharynx normal, moist mucous membranes Neck Exam: normal inspection, non-tender, supple, full range of motion Respiratory Exam: normal breath sounds, lungs clear, No respiratory distress Cardiovascular Exam: regular rate/rhythm, normal heart sounds Gastrointestinal/Abdomen Exam: soft, No tenderness Back Exam: normal inspection, No CVA tenderness, No vertebral tenderness Extremity Exam: normal inspection, normal range of motion Neurologic Exam: alert, oriented x 3, cooperative, normal mood/affect, sensation nml, No motor deficits Skin Exam: normal color, warm, dry, No rash Lymphatic Exam: No adenopathy SpO2 Interpretation: normal SpO2: 97 O2 Delivery: Room Air - Course Nursing assessment & vital signs reviewed: Yes Lab/Rad Data: Laboratory Results 05/29/24 05/29/24 Range/Units 19:05 19:05 Influenza Type A Ag POSITIVE A (NEGATIVE) Influenza Type B Ag NEGATIVE (NEGATIVE) RSV (PCR) NEGATIVE (NEGATIVE) SARS-CoV-2 (PCR) NEGATIVE (NEGATIVE) Group A Strep Antibody NOT DETECTED (NEGATIVE) - Progress Progress: improved, re-examined Air Movement: good Blood Culture(s) Obtained: No Antibiotics given: Yes Counseled pt/family regarding: lab results, diagnosis, need for follow-up Medical Desision Making - Independent Historian Additional History obtained from: Family - Discussion of managment Reviewed:: Test results, Need for additional workup Agreed on:: Treatment plan, need for follow-up - Diagnostic Testing Diagnostic test were ordered, analyzed, and reviewed by me: Yes - Risk of complications The pt has a mod risk of morbidity or mortality based on: Need for prescription drug management - Departure Departure Disposition: Home Clinical Impression: Influenza due to influenza virus, type A, human Condition: Good Critical Care Time: No Referrals: KENNY GENAO [Primary Care Provider] - Follow up/PCP as directed Instructions: Flu in adults - ED discharge instructions Additional Instructions: followup with your Dr. for your flu . return meantime if short of breath, vomiting persists, dizziness, or any rother symptoms of concern. Prescriptions: Oseltamivir 75 mg [Tamiflu 75MG Capsule] 75 mg PO BID #10 cap
[2024-05-29 19:58] LABS: INFLUENZA B NEGATIVE (NEGATIVE); RESPIRATORY SYNCTIAL VIRUS NEGATIVE (NEGATIVE); SARS-CoV-2 Xpert Express NEGATIVE (NEGATIVE)
[2024-05-29 20:01] LABS: INFLUENZA A POSITIVE (NEGATIVE)
[2024-05-29 21:25] VITALS: BP 136/82
[2024-05-29 21:26] VITALS: PULSE 74; RESP 18
[2024-05-29] MEDS ORDERED: Tamiflu 75MG Capsule PO ONE (21:44)
[2024-05-29] MEDS: Tamiflu 75MG Capsule PO ONE (21:51)
== END 2024-05-29 21:57 | disposition home or self-care (01) ==
LOC: ED 18:33
DX: J10.1 Influenza due to other identified influenza virus with other respiratory manifestations (principal); R11.2 Nausea with vomiting, unspecified; Z79.899 Other long term (current) drug therapy; Z72.0 Tobacco use
CPT/HCPCS: 0241U; 87651; 99284; 99281; A9270-GY